=== PATIENT | female | born 1965 | race Caucasian/White ===

== ENCOUNTER 2018-08-14 21:32 | Emergency (ER) | payer MEDICAID ==
[~2018-08-14] VITALS: Ht 157.5 cm; Wt 72.6 kg
[2018-08-14 21:35] VITALS: BP_SYST 158
[2018-08-14] MEDS ORDERED: KETOROLAC TROMETHAMINE 60 MG/2 ML VIAL IM ONE (21:45)
[2018-08-14 23:20] VITALS: BP_SYST 158
== END 2018-08-14 23:20 | disposition home or self-care (01) ==
LOC: SED 21:32
DX: M25.511 Pain in right shoulder (principal); M25.512 Pain in left shoulder; R03.0 Elevated blood-pressure reading, without diagnosis of hypertension; Z86.73 Personal history of transient ischemic attack (TIA), and cerebral infarction without residual deficits
CPT/HCPCS: 96372; 99283; J1885

== ENCOUNTER 2018-08-23 01:16 | Emergency (ER) | payer MEDICAID ==
[~2018-08-23] VITALS: Ht 157.5 cm; Wt 72.6 kg
[2018-08-23 01:20] VITALS: BP_SYST 154
[2018-08-23] MEDS ORDERED: HYDROcodone/ACETAMIN 5-325 MG TAB (NORCO/ VICODIN) PO ONE (05:15)
[2018-08-23 05:48] VITALS: BP_SYST 154
== END 2018-08-23 05:48 | disposition home or self-care (01) ==
LOC: SED 01:16
DX: M79.675 Pain in left toe(s) (principal); L60.0 Ingrowing nail; R51 Headache; Z86.73 Personal history of transient ischemic attack (TIA), and cerebral infarction without residual deficits
CPT/HCPCS: 70450-TC; 99284

== ENCOUNTER 2019-07-18 13:55 | Emergency (ER) | payer MEDICAID ==
[~2019-07-18] VITALS: Ht 157.5 cm; Wt 72.6 kg
[2019-07-18 13:55] VITALS: BP_SYST 157
[2019-07-18 15:15] VITALS: BP_SYST 157
== END 2019-07-18 15:15 | disposition home or self-care (01) ==
LOC: SED 13:55
DX: J40 Bronchitis, not specified as acute or chronic (principal)
CPT/HCPCS: 99283